=== PATIENT | female | born 1970 | race Caucasian/White ===

== ENCOUNTER → 2017-09-03 15:28 | Outpatient (CLI) | payer BC, OTHER, SELFPAY ==
[2017-09-03 18:07] LABS: Anion Gap 5 (5-15); BUN 14 mg/dL (7-18); BUN/Creat Ratio 14.7 RATIO (10-20); Calcium,Total 8.8 mg/dL (8.5-10.1); Chloride 108 mmol/L (98-107); Cholesterol 234 mg/dL (200); Creatinine, Serum 0.95 mg/dL (0.55-1.02); EST Glomerular Filtration Rate 67 mL/min (>60); Est Glom Filt Rate - Afr Amer 81 mL/min (>60); Glucose 68 mg/dL (74-106); High Density Lipoprotein 90 mg/dL; Potassium 3.9 mmol/L (3.5-5.1); Sodium Level 139 mmol/L (136-145); Thyroid Stim Hormone (TSH) 1.49 uIU/mL (0.358-3.74); Triglycerides 58 mg/dL; Very Low Density Lipoprotein 12 mg/dL (5-40)
[2017-09-05 08:35] LABS: Vitamin D,25 Hydroxy 32.8 ng/mL (29.95-100.01)
== END ==
PROVIDERS: Family Provider Family Medicine; PCP Family Medicine; Visit Provider Family Medicine
DX: Z00.00 Encounter for general adult medical examination without abnormal findings (principal)
CPT/HCPCS: 36415; 80048; 80061; 82306; 84443

== ENCOUNTER → 2017-10-31 14:08 | Outpatient (CLI) | payer BC, OTHER, SELFPAY ==
--- NOTE | 2017-10-31 14:14 | RAD_ITS ---
STUDY: X-RAY - LEFT WRIST REASON FOR EXAM: Female, 47 years old. Recent fall, try to cut herself TECHNIQUE: 3 view(s) of the wrist were obtained. COMPARISON: None. FINDINGS: Acute transverse fracture of the distal radial epiphysis with intra-articular extension. There is a 0.18 cm step-off at the articular cortex. Mild adjacent soft tissue swelling. Normal radiocarpal articulation. Normal distal radioulnar articulation. Normal carpal bones. Normal carpal articulations. Normal carpometacarpal articulation of the thumb. Normal second through fifth carpometacarpal articulations. Normal visualized metacarpal bones. RAD/Wrist min 3 Views IMPRESSION: Acute distal radial diaphyseal fracture with intra-articular extension and cortical step-off at the articular surface. Mild adjacent soft tissue swelling. Electronically Signed: Tosha Thomas MD at 8:02 EDT , Service support ,
== END ==
PROVIDERS: Family Provider Family Medicine; PCP Family Medicine; Referring Provider Nurse Practitioner Family; Visit Provider Nurse Practitioner Family
DX: M25.539 Pain in unspecified wrist (principal)
CPT/HCPCS: 73110

== ENCOUNTER → 2017-11-14 16:43 | Outpatient (CLI) | payer BC, OTHER, SELFPAY ==
--- NOTE | 2017-11-14 16:44 | CT_ITS ---
Exam: CT of the left wrist. HISTORY: Follow-up fracture seen on radiographs. COMPARISON: Radiographs 10/31/2017 FINDINGS: As on the radiographs, nondisplaced fracture seen of the dorsal distal radial metaphysis, extending into the articular surface. No impaction. No angulation. Normal appearance of the distal ulna. Normal visualized carpals and metacarpals. CT/Extremity Upper without Contra IMPRESSION: This exam confirms the nondisplaced intra-articular distal fracture seen on radiographs. No evidence for interval healing. Electronically Signed: Ortega Cross MD at 17:23 EDT , Service support ,
--- NOTE | 2017-11-14 17:00 | CT_ITS ---
Exam: CT of the left wrist. HISTORY: Follow-up fracture seen on radiographs. COMPARISON: Radiographs 10/31/2017 FINDINGS: As on the radiographs, nondisplaced fracture seen of the dorsal distal radial metaphysis, extending into the articular surface. No impaction. No angulation. Normal appearance of the distal ulna. Normal visualized carpals and metacarpals. CT/Coronals Sag Multi Obl 3-D Rec IMPRESSION: This exam confirms the nondisplaced intra-articular distal fracture seen on radiographs. No evidence for interval healing. Electronically Signed: Ortega Cross MD at 17:23 EDT , Service support ,
== END ==
PROVIDERS: Family Provider Family Medicine; PCP Family Medicine; Referring Provider Orthopaedic Surgery; Visit Provider Orthopaedic Surgery
DX: S52.515A Nondisplaced fracture of left radial styloid process, initial encounter for closed fracture (principal)
CPT/HCPCS: 73200; 76377

== ENCOUNTER → 2017-12-20 10:29 | Outpatient (CLI) | payer BC, OTHER, SELFPAY ==
--- NOTE | 2017-12-20 10:31 | RAD_ITS ---
STUDY: X-RAY - LEFT WRIST REASON FOR EXAM: Fracture follow-up. TECHNIQUE: 3 view(s) of the wrist were obtained. COMPARISON: Radiographs 10/31/2017. FINDINGS: There is a nondisplaced fracture of the distal radius with the fracture line less distinct indicating healing. Normal radiocarpal articulation. Normal distal radioulnar articulation. Normal carpal bones. Normal carpal articulations. Normal carpometacarpal articulation of the thumb. Normal second through fifth carpometacarpal articulations. Normal visualized metacarpal bones. The soft tissue structures are unremarkable. RAD/Wrist min 3 Views IMPRESSION: Healing nondisplaced fracture of the distal radius. Electronically Signed: Marvin Lechuga MD at 14:25 EST Tel , Service support ,
== END ==
PROVIDERS: Family Provider Family Medicine; PCP Family Medicine; Visit Provider Orthopaedic Surgery
DX: S52.92XA Unspecified fracture of left forearm, initial encounter for closed fracture (principal)
CPT/HCPCS: 73110

== ENCOUNTER 2018-01-30 10:30 | Outpatient (RCR) | payer BC, OTHER, SELFPAY ==
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
--- NOTE | 2018-01-30 10:51 | OTREVAL_ITS ---
Renuka Jay, DO, It has been my pleasure to treat KEN LANE over the last 12 visits for R distal radius fracture. Please see the progress note below for an update on the occupational therapy plan of care! Subjective: Arrived and noted things are going. Feels like ' I'm getting stronger' but still noted weakness. Objective/Function: Completed OT- re-evaluation on this date of 01/16/18. Results are as follows: Wrist: - flexion R 0-97, L 0-55. - extension R 0-69, L 0-54. - supination R 0-74, L 0-75. Thumb. MP flexion R WFL, L 0-51. IP R WNL, L -15-0-56. Thumb opposition R 0-31, L 0-20. radial abduction R 0-60, L 0-47. Strength: Supervisor [employer]: R 86, L 35. Lateral; R 19, L 9. Three Jaw R 18, L 8 - pain increased to 6/10, sharp and shooting. Pincer: R 13, L 5. 9 hole pegboard test: R 17.31 s. L 17.90 s. Ken has progressed since inital evaluation. Would benefit from continue OT to address strengthening and general conditioning to return to FT work for 2x weekly 3x weeks. Plan Frequency: 2x /Week Duration: 3 Weeks Visits in this POC: 8 Plan: continue POC. Will complete total 14 session to address B UE strength and endurance of UE with focus on hand and wrist needed to return to work without restrictions. Goals - Goals Goal:: Ken to increased L unemployment claims adjudicator to 60-70% of R non affected hand unemployment claims adjudicator strength to promote increased ROM and strength needed for ADL/IAdls including work related tasks by d/c. Goal:: Ken to increased ROM to similar results of R nonaffected hand to promote increased ROM and strength needed to complete ADL/IALDs by d/c. Goal:: Ken to complete pain management techniques to promote no more than 1/10 painw ith repetitive hand and thumb movement 4/5 trials 80% of the time to promote returning to PLOF for ADL/IALDs by d/c. Goal:: Ken to increase L hand dexterity and FMC through decrease time for completion on 9 hole pegboard test by d/c. Goal:: Ken to complete joint protection and correct wrist and thumb machanics to decrease risk of further injury 4/5 trials 80% of the time by /d.c Goal:: Ken to increasedreturn to all ADL/IADls without compensation 4/5 trials 80% of the time to promote increased ROM, strength, and general function of L hand by d/c. Anticipated Interventions Anticipated Interventions: A/AAROM/PROM, Strengthening, Massage, Desensitization, Modalities, Orthoses, Joint Protection/Energy Conservation, Ergonomic Education, Dynamic Sitting Balance, Fine Motor Coord/Nehemiah, ADL Training, Caregiver Training, Home Program Please do not hesitate to contact me at [phone] by phone or if you have questions or concerns regarding this new plan of care! Sincerely, Starla Oconnell
--- NOTE | 2018-01-30 12:09 | HP.OTDCSUM ---
HP - OT D/C Summary It has been my pleasure to treat KEN LANE under orders from Renuka Jay DO, for the diagnosis of R distal radius fracture for a total of 13 visit(s). Please see the following information for a summary of their discharge status. - Overall Improvement % Improvement: 80 - Objective Objective/Function: Completed new measurements today post gym based exercises. Results are as follows: ROM: Wrist. -flexion R 0-90, L 0-65. -extension R 0-60, L 0-56. -radial deviation R 0-15, L 0-14. -ulnar deviation R 0-31, L 0-24. -supination R 0-81, L 0-86. Strength: - sample shoe inspector and reworker in flexed position: R 89, L 63. - sample shoe inspector and reworker in extended position: R 96, L 84. - lateral R 20, L 12. - tripod R 17, L 12. - pincer R 14, L 7. 9 hole pegboard testL R 15.58 s, L 18.75 s. Denies numbness or tingling. Ken has progressed and meant most goals. She is able to complete 3x lifts with 50 lbs. - Goals Patient Goals: Regain Mobility, Regain Strength, Decrease Pain, Return to Work, Decrease Swelling/Stiffness, Improve Fine Motor Skills, Use Hand/Wrist/Arm Normally Again, Increase ROM, Be More Independent in ADLS, Resume Former Household Responsibilities (Cooking,Cleaning,Yard, etc.), Resume Hobbies Goal:: Ken to increased L sample shoe inspector and reworker to 60-70% of R non affected hand sample shoe inspector and reworker strength to promote increased ROM and strength needed for ADL/IAdls including work related tasks by d/c. Goal:: Ken to increased ROM to similar results of R nonaffected hand to promote increased ROM and strength needed to complete ADL/IALDs by d/c. Goal:: Ken to complete pain management techniques to promote no more than 1/10 painw ith repetitive hand and thumb movement 4/5 trials 80% of the time to promote returning to PLOF for ADL/IALDs by d/c. Goal:: Ken to increase L hand dexterity and FMC through decrease time for completion on 9 hole pegboard test by d/c. Goal:: Ken to complete joint protection and correct wrist and thumb machanics to decrease risk of further injury 4/5 trials 80% of the time by /d.c Goal:: Ken to increased return to all ADL/IADls without compensation 4/5 trials 80% of the time to promote increased ROM, strength, and general function of L hand by d/c. - Plan Plan: Pt. would like to hold d/c until after seeing doctor tomorrow. After doctor appointment as long as she is cleared for work she will be d/c'd. 01/27/18. Called and discussed with pt. results of doctor appointment. She noted she will be returning Feb.13. She is to continue HEP and gym-based exercises in the meantime. She is to call with questions/concerns. Handouts have been provided over the course of therapy for all topics discussed and HEP she is to be completing to promote strength and stability of affected wrist and hand. She has been complaint with completing exercises. - D/C Information If there are questions or concerns regarding this patient's occupational therapy, please fell free to call me at [phone]. Thank you for the referral of this patient. Sincerely, Starla Oconnell
== END 2018-01-30 19:00 | disposition home or self-care (01) ==
LOC: OT 10:30
PROVIDERS: Family Provider Family Medicine; PCP Family Medicine; Referring Provider Orthopaedic Surgery; Visit Provider Orthopaedic Surgery
DX: S52.502D Unspecified fracture of the lower end of left radius, subsequent encounter for closed fracture with routine healing (principal); X58.XXXD Exposure to other specified factors, subsequent encounter
CPT/HCPCS: 97110; 97140; 97166; 97168

== ENCOUNTER → 2018-10-29 14:54 | Outpatient (CLI) | payer BC, SELFPAY ==
[2018-10-29 14:46] VITALS: BMI 26.9
--- NOTE | 2018-10-29 14:56 | RAD_ITS ---
STUDY: X-RAY - LEFT HAND REASON FOR EXAM: Bump in the palm of the hand near the third and fourth metacarpals. TECHNIQUE: 3 view(s) of the hand. COMPARISON: Radiographs of the left wrist 12/20/2017. FINDINGS: Normal radiocarpal articulation. Normal distal radioulnar joint. There is healed fracture deformity of the distal radius. Normal visualized carpal bones. Normal carpal articulations Normal carpometacarpal articulation of the thumb. Normal second through fifth carpometacarpal joints. Normal metacarpi. Normal metacarpophalangeal joint of the thumb. Normal interphalangeal joint of the thumb. Normal proximal and distal phalanges of the thumb. Normal metacarpophalangeal joints of the second through fifth fingers. Normal proximal and distal interphalangeal joints of the second through fifth fingers. Normal phalanges of the second through fifth fingers. The soft tissue structures are unremarkable. RAD/Hand Min 3 Views IMPRESSION: Healed fracture deformity of the distal radius. Otherwise, unremarkable x-ray examination of the left hand. Electronically Signed: Marvin Lechuga MD at 15:57 EDT Tel , Service support ,
== END ==
PROVIDERS: Family Provider Family Medicine; PCP Family Medicine; Referring Provider Orthopaedic Surgery; Visit Provider Orthopaedic Surgery
DX: M79.642 Pain in left hand (principal)
CPT/HCPCS: 73130

== ENCOUNTER → 2019-01-20 16:26 | Outpatient (CLI) | payer BC, SELFPAY ==
[2019-01-02 14:04] VITALS: BMI 26.9
[2019-01-20 17:49] LABS: Absolute Lymphocyte Count 1.23 X10^3/uL (0.83-4.51); Absolute Neutrophil Count 5.5 X10^3/uL (2.0-7.7); Basophil# 0.03 X10^3/uL; Basophil% 0.4 % (0-1); Eosinophil# 0.17 X10^3/uL; Eosinophils% 2.2 % (0-5); Hematocrit 39.1 % (37-47); Hemoglobin 12.8 g/dL (12.0-15.0); Lymphocyte # 1.23 X10^3/ul (4.0); Lymphocyte % 15.7 % (19-41); Mean Corp Hgb Conc 32.7 g/dL (32-36); Mean Corpuscular Hgb 30.9 pg (27.0-32.0); Mean Corpuscular Volume 94.4 fL (81-99); Mean Platelet Vol. 10.8 fl (6.2-12.0); Monocyte# 0.88 X10^3/uL; Monocyte% 11.2 % (0-10); NRBC Flagged by Analyzer 0 % (0-5); Neutrophil # 5.49 X10^3/uL (2.7-7.7); Neutrophil % 70.1 % (47-70); Platelet Count 184 K/mm3 (150-450); RBC Distribution Width CV 12.6 % (11.6-14.6); RBC Distribution Width SD 43.9 fl (35.1-43.9); Red Blood Count 4.14 M/mm3 (4.2-5.4); White Blood Count 7.8 K/mm3 (4.4-11.0)
== END ==
PROVIDERS: Family Provider Family Medicine; PCP Family Medicine; Visit Provider Family Medicine
DX: C85.90 Non-Hodgkin lymphoma, unspecified, unspecified site (principal)
CPT/HCPCS: 36415; 85025

== ENCOUNTER 2020-04-21 15:00 | Outpatient (RCR) | payer BC, SELFPAY ==
[2019-01-02 14:04] VITALS: BMI 26.9
--- NOTE | 2020-04-01 07:40 | HP.OTEVAL_ITS ---
Patient's Visit Information KEN LANE is a 49 year old F, referred to Occupational Therapy by Dr. Edenilson Abbott MD, with a diagnosis of left thumb weakness. Date of Evaluation: 03/31/20 Occupational Therapist: Juanis Houser, ALEJANDRAR/Goyo, CHT - Subjective this 49 year old female was seen for OT eval with dx of left hand weakness. pt states. she broke her left wrist Oct 2018. pt states she feels she made a good recovery but has noticed difficulty picking up objects that require a pinch and difficulty with getting a senior commissary agent on things like pulling her shirt sleeve up. pt would like to know what she can do to increase her strength or figure out why her hand is weak. pt denies injury, numbness or tingling. - ADLs Dressing: Button shirt, Pants, Socks Fasteners: Tie shoes, Buttons, Zippers, Snaps - Objective Concerns: pt demo with sings of nerve involvement and would benefit from nerve conduction testing and ortho as strength will not return until nerve impingement resolved - ROM Opposition: right 10 left 6 ROM Comments: pt demo with limited left LF and RF adduction - Strength Seismograph Helper: right 80# left 20# with wrist extension compensation for senior commissary agent Lateral Pinch: right 18# left 4# Tripod Pinch: right 16# left unable Strength Comments: pt demo with weakness in ulnar nerve - Quick DASH-Disab of Arm,Shoulder& Hand Quick DASH Score: 25.0000 - Goals Goal:: pt will demo a increase in left senior commissary agent to 65# or greater to increase pts ind. with ADls and IADLs by d/c. pt will demo a increase in left pinch strength by 4# or greater to increase pts ind. with ADLs and IADls by d/c Goal:: pt will demo the ability to adduct LF to RF to prevent injury to LF by d/c Goal:: pt will demo understanding of performing nerve glides by end of 1st session. Goal:: pt will demo understanding of using compensitory mendy. to increase safety and performance of ADls by d/c - Rehabilitation General Assessment: pt demom with + Froment's sign with associated wasting of the 1st dorsal interosseous muscle. senior commissary agent and pinch strength impaired increasing difficulty with ADLs and IADLs. pts would benefit from nerve conduction and ortho consultation due to severity of muscle atrophy. Therapy will provide ulnar nerve glides and ed. pt on ulnar nerve compression. pt demo understanding and agree to POC. Rehabilitation Potential: Questionable - Anticipated Interventions A/AAROM/PROM, Strengthening, Orthoses, Joint Protection/Energy Conservation, Ergonomic Education, Fine Motor Coord/Nehemiah, Home Program Other Interventions: ulnar nerve glides. use of orthosis to stabilize thumb as needed - Visit Plan Frequency: 1-2x /Week Duration: 6 Weeks TEXT: Thank you for the opportunity to evaluate your patient. For Medicare and Medicare HMO plans, please review the plan of care and approve it. It will need to be FAXED BACK to us at [phone] for Medicare purposes. Please let me know if there are questions or concerns regarding this plan of care. Physician Signature: Date:
--- NOTE | 2020-07-21 11:50 | HP.OT.NRP ---
KEN LANE was seen in my office for initial evaluation on 03/31/20. The following Plan of Care was established for this patient: Initial Frequency: 1-2x /Week Initial Duration: 6 Weeks Anticipated Interventions: A/AAROM/PROM, Strengthening, Orthoses, Joint Protection/Energy Conservation, Ergonomic Education, Fine Motor Coord/Nehemiah, Home Program Other Interventions: ulnar nerve glides. use of orthosis to stabilize thumb as needed This patient was last seen in our office 04/21/20. Pertinent comments regarding their Occupational therapy will appear below: pt was seen for 2 OT visits. Pt did not make new gains in function during this time. due to time lapse in therapy services pt d/c. At this point I will be discontinuing this patient from occupational therapy. I would be happy to see this patient again in the future if found appropriate by the physician. Thank you! Juanis Houser, OTR/L, CHT
== END 2020-04-21 19:00 | disposition home or self-care (01) ==
LOC: OT 15:00
PROVIDERS: PCP Family Medicine; Referring Provider Family Medicine; Visit Provider Family Medicine
DX: R29.898 Other symptoms and signs involving the musculoskeletal system (principal)
CPT/HCPCS: 97110; 97166; 97530

== ENCOUNTER → 2020-05-10 13:19 | Outpatient (CLI) | payer BC, SELFPAY ==
[2019-01-02 14:04] VITALS: BMI 26.9
--- NOTE | 2020-05-10 13:19 | MRI_ITS ---
STUDY: MRI CERVICAL SPINE WITHOUT CONTRAST REASON FOR EXAM: Female, 49 years old. left arm weakness, mucsle artrophy. TECHNIQUE: Standardized fat and water weighted pulse sequences were obtained in the sagittal and axial planes. COMPARISON: 04/09/2015 FINDINGS: Normal foramen magnum and brainstem-cervical cord junction. Normal craniovertebral junction. Normal anterior atlantoaxial articulation. Normal odontoid process. Decreased cervical lordosis. Normal vertebral bodies and posterior osseous elements. C2-3: Normal endplates. Normal disc height, signal and morphology. Normal central canal and intervertebral neural foramina. C3-4: Normal endplates. Normal disc height, signal and morphology. Normal central canal and intervertebral neural foramina. C4-5: Normal endplates. Normal disc height, signal and minor bulging of the disc. Normal central canal and intervertebral neural foramina. C5-6: Narrowed disc space and endplate spurring. Mild narrowing the central canal and impingement upon the cord. Severe bilateral neuroforaminal stenosis due to bony hypertrophy.. C6-7: Mildly narrowed disc space and endplate spurring. Normal central canal. Moderate to severe bilateral neuroforaminal stenosis secondary to bony hypertrophy.. C7-T1: Normal endplates. Normal disc height, signal and morphology. Normal central canal and intervertebral neural foramina. Normal cervical cord. Normal visualized soft tissue structures. Findings are similar to that seen on prior exam. MRI/Spine Cervical (Routine) IMPRESSION: No evidence for acute fracture or other significant bony pathology.. Spondylosis most severe at C5-6 and C6-7 in association with spinal stenosis secondary to bony hypertrophy.. Electronically Signed: Sunil Araujo MD at 17:19 EDT , Service support ,
--- NOTE | 2020-05-10 13:19 | MRI_ITS ---
STUDY: MRI THORACIC SPINE WITHOUT CONTRAST REASON FOR EXAM: Female, 49 years old. arm weakness, mucsle atrophy TECHNIQUE: Standardized fat and water weighted pulse sequences were obtained in the sagittal and axial planes. COMPARISON: None. FINDINGS: Normal kyphosis of the thoracic spine. There is no substantial scoliosis. No evidence for acute fracture or other significant bony pathology.. There is mild multilevel disc space narrowing and endplate spurring as well as disc degeneration without significant disc protrusion spinal stenosis or cord compression. Normal visualized thoracic cord. Normal conus medullaris that terminates at T12-L1 The soft tissue structures are unremarkable. MRI/Spine Thoracic (Routine) IMPRESSION: Mild spondylosis. No acute fracture. No definitive evidence for metastatic disease although limited repeat study with contrast would be useful for further evaluation if clinically warranted Electronically Signed: Sunil Araujo MD at 17:16 EDT , Service support ,
--- NOTE | 2020-05-10 13:19 | MRI_ITS ---
STUDY: MRI BRAIN WITH AND WITHOUT CONTRAST REASON FOR EXAM: Female, 49 years old. left upper extremity weakness, concern for METS -- hx non Hodgkins Lymphoma TECHNIQUE: Standardized multiplanar fat and water weighted pulse sequences were obtained. 15ml IV Dotarem was administered for the contrast portion of the examination. COMPARISON: None. FINDINGS: Normal size of the ventricles and extra-axial spaces for the patient''s age. Normal white matter tracts of the supratentorial brain. Normal bilateral basal ganglia. Normal thalami. There is no extra-axial fluid accumulation. Normal flow voids within the major intracranial circulation suggesting patency by spin echo criteria. Normal venous enhancement. There is a small homogeneously enhancing nodule in the right parietal lobe raising 4.5 x 7.3 mm without mass effect or restricted diffusion which may be consistent with metastasis. Meningioma not excluded but less likely in the absence of dural enhancement. However clinical correlation recommended Normal sella turcica, pituitary gland, infundibular stalk, optic chiasm and hypothalamus. Normal tectal plate and pineal gland. Normal midbrain, leslee and medulla. Normal cerebellum. Normal basal cisterns. Normal bilateral temporal bones. Normal bilateral internal auditory canals. No demonstrated orbital abnormality, within the constraints of a routine brain study. Normal visualized paranasal sinuses. Normal calvarium and skull base. Normal visualized soft tissue structures. Normal visualized upper cervical spine. MRI/Brain W/WO Contrast IMPRESSION: Small homogeneously enhancing nodule in the right parietal lobe possibly representing metastatic lesion. Meningioma not entirely excluded although less likely. Clinical correlation is recommended Electronically Signed: Sunil Araujo MD at 17:09 EDT , Service support ,
== END ==
PROVIDERS: PCP Family Medicine; Referring Provider Orthopaedic Surgery; Visit Provider Orthopaedic Surgery
DX: R29.898 Other symptoms and signs involving the musculoskeletal system (principal); M62.542 Muscle wasting and atrophy, not elsewhere classified, left hand; M62.58 Muscle wasting and atrophy, not elsewhere classified, other site; Z85.72 Personal history of non-Hodgkin lymphomas; R29.2 Abnormal reflex; M50.30 Other cervical disc degeneration, unspecified cervical region
CPT/HCPCS: 70553; 72141; 72146; A9575

== ENCOUNTER 2020-10-08 11:36 | Outpatient (RCR) | payer BC, SELFPAY | END 2020-11-12 23:59 | LOC: IMMUN 11:36 | PROVIDERS: PCP Family Medicine; Referring Provider Family Medicine; Visit Provider Family Medicine | DX: Z23 Encounter for immunization (principal) ==

== ENCOUNTER → 2020-12-01 15:28 | Outpatient (CLI) | payer BC, SELFPAY ==
[2020-12-01 17:38] LABS: Basophil# 0.03 X10^3/uL; Basophil% 0.6 % (0-1); Eosinophil# 0.12 X10^3/uL; Eosinophils% 2.4 % (0-5); Hematocrit 41.6 % (37-47); Hemoglobin 13.2 g/dL (12.0-15.0); Lymphocyte % 28.1 % (19-41); Mean Corp Hgb Conc 31.7 g/dL (32-36); Mean Corpuscular Volume 94.5 fL (81-99); Mean Platelet Vol. 10.9 fl (6.2-12.0); NRBC Flagged by Analyzer 0 % (0-5); Neutrophil # 3.02 X10^3/uL (2.7-7.7); Neutrophil % 60.7 % (47-70); Platelet Count 195 K/mm3 (150-450); RBC Distribution Width CV 12.9 % (11.6-14.6); RBC Distribution Width SD 44.6 fl (35.1-43.9)
[2020-12-01 17:56] LABS: Vitamin D,25 Hydroxy 40.7 ng/mL
[2020-12-01 18:02] LABS: AST(SGOT) 24 U/L (15-37); Alanine Aminotransfer ALT/SGPT 32 U/L (13-56); Albumin, Serum 3.8 g/dL (3.2-5.0); Alkaline Phosphatase 75 U/L (45-117); Anion Gap 6 (5-15); BUN 19 mg/dL (7-18); BUN/Creat Ratio 21.5 RATIO (10-20); Chloride 103 mmol/L (98-107); Creatinine, Serum 0.88 mg/dL (0.55-1.02); EST Glomerular Filtration Rate 72 mL/min (>60); Est Glom Filt Rate - Afr Amer 87 mL/min (>60); Globulin 3.9 g/dL (2.2-4.2); Glucose 73 mg/dL (74-106); Protein, Total 7.7 g/dL (6.4-8.2); Sodium Level 138 mmol/L (136-145); Thyroid Stim Hormone (TSH) 1.89 uIU/mL (0.358-3.74)
== END ==
PROVIDERS: PCP Family Medicine; Referring Provider Family Medicine; Visit Provider Family Medicine
DX: E55.9 Vitamin D deficiency, unspecified (principal); C85.90 Non-Hodgkin lymphoma, unspecified, unspecified site; F41.9 Anxiety disorder, unspecified
CPT/HCPCS: 36415; 80053; 82306; 84443; 85025

== ENCOUNTER 2021-03-16 16:04 | Outpatient (CLI) | payer BC, SELFPAY ==
[2021-03-16 18:15] LABS: Erythrocyte Sedimentation Rate 9 mm/hr (0-30)
[2021-03-16 18:30] LABS: Vitamin B12 1134 pg/mL (211-911)
[2021-03-16 19:14] LABS: CRP < 2.90 mg/L (0.0-3.0)
[2021-03-19 15:07] LABS: Vitamin D 1,25-Dihydroxy 42.4 pg/mL (19.9-79.3)
[2021-03-19 17:19] LABS: ANTINUCLEAR ANTIBODIES DIRECT Negative (Negative)
[2021-03-22 08:19] LABS: Arsenic 7245 < 1 ug/L (2-23); Lead, Blood < 1 ug/dL (0-4); Mercury, Blood 85324 < 1.0 ug/L (0.0-14.9)
[2021-03-30 11:09] LABS: Vitamin B1, Thiamine 253.4 nmol/L (66.5-200.0)
[2021-03-31 16:58] LABS: Zinc, Plasma or Serum 87 ug/dL (44-115)
== END 2021-03-16 23:59 | disposition short-term general hospital (02) ==
PROVIDERS: PCP Family Medicine; Referring Provider Family Medicine; Visit Provider Psychiatry & Neurology Neurology
DX: G12.20 Motor neuron disease, unspecified (principal)
CPT/HCPCS: 36415; 82175; 82607; 82652; 82746; 83655; 83825; 84425; 84630; 85652; 86038; 86140; 86225; 86235

== ENCOUNTER 2021-03-21 14:30 | Outpatient (RCR) | payer BC, SELFPAY ==
--- NOTE | 2021-03-22 09:14 | HP.OTEVAL_ITS ---
Patient's Visit Information KEN LANE is a 50 year old F, referred to Occupational Therapy by Dr. Alex Abdalla MD, with a diagnosis of Motor neuron disease unspecified Dupuytren's contracture left RF. Date of Evaluation: 03/21/21 Occupational Therapist: Juanis Houser, FRANCY/Goyo, CHT - Subjective This 50 year old female was seen for OT eval with dx of motor neuron disease, and palmar fascial fibromatosis (Dupuytren's)- pt was seen by this therapist just about a year ago- pt continues to struggle with weakness of left hand- (many are trying to figure out what is causing it-) ortho feels it is a nuro issue not at problem with compression of nerves- pt states she is functional but having difficulty with opening items that require bilateral hands- pt presents with median and ulnar motor nerve atrophy- and would like to know what she can do to assist in keeping her function and limit contractures - ROM ROM Comments: 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 pt PROM is WNL - Strength Dancing Instructor: right 80# left 20# Lateral Pinch: right 12# left unable Tripod Pinch: right 10# left unable Strength Comments: integration technician strength on left did not change from eval about a year ago-. however lateral pinch decreased to unable from 4# of pinch - Sensation Sensation Comments: pt states at times she get tingling down her forearm - Quick DASH-Disab of Arm,Shoulder& Hand Quick DASH Score: 31.6650 - Goals Goal:: pt will demo understanding of using tenositis approach for grasping objects of medium and small size by d/c Goal:: pt will demo understanding of using adaptive equipment to increase ind. with shoe tie (such as elastic lace) by d.c Goal:: pt will demo understanding of using adaptive eq. for FMS as rocker knife, voice to text, and ad. container fish skinning machine feeder by anitac Goal:: pt will demo IND doffing/donning of custom orthosis to increase pts ind with grasp by dc - Rehabilitation General Assessment: pt demo with positive wasting of ulnar and median nerve innervated muscle groups of her hand- this limits pts ability to hold or use left hand for ADls and IADLs. Pt has positive Dupuytren's contracture of left RF- with PROM pt gains full ext ( the limited ability to extend fingers are probably more due to ulnar motor nerve disease) pt would benefit from skilled OT services 4 visits to ensure pt has understanding of Ad. eq. and use of custom orthosis to prevent contracture deformities. pt demo understanding and agree to POC, Rehabilitation Potential: Good - Anticipated Interventions A/AAROM/PROM, Strengthening, Orthoses, Joint Protection/Energy Conservation, Ergonomic Education, Fine Motor Coord/Nehemiah, Education re assistive Equipment, Education re Diagnosis, Home Program - Visit Plan Frequency: Every Other Week Duration: 6 Weeks TEXT: Thank you for the opportunity to evaluate your patient. For Medicare and Medicare HMO plans, please review the plan of care and approve it. It will need to be FAXED BACK to us at [phone] for Medicare purposes. Please let me know if there are questions or concerns regarding this plan of care. Physician Signature: Date:
--- NOTE | 2021-04-04 08:26 | HP.OT.NRP ---
KEN WYATT was seen in my office for initial evaluation on 03/21/21. The following Plan of Care was established for this patient: Initial Frequency: Every Other Week Initial Duration: 6 Weeks Anticipated Interventions: A/AAROM/PROM, Strengthening, Orthoses, Joint Protection/Energy Conservation, Ergonomic Education, Fine Motor Coord/Nehemiah, Education re assistive Equipment, Education re Diagnosis, Home Program This patient was last seen in our office 03/21/21. Pertinent comments regarding their Occupational therapy will appear below: pt was seen for initial OT eval - cancelled her follow up as she had no change in her movement. Pt request d/c. At this point I will be discontinuing this patient from occupational therapy. I would be happy to see this patient again in the future if found appropriate by the physician. Thank you! Juansi Houser, OTR/L, CHT
== END 2021-03-21 19:00 | disposition home or self-care (01) ==
LOC: OT 14:30
PROVIDERS: PCP Family Medicine; Referring Provider Psychiatry & Neurology Neurology; Visit Provider Psychiatry & Neurology Neurology
DX: G12.20 Motor neuron disease, unspecified (principal); M72.0 Palmar fascial fibromatosis [Dupuytren]
CPT/HCPCS: 97166

== ENCOUNTER 2021-04-12 17:51 | Outpatient (CLI) | payer BC, SELFPAY ==
--- NOTE | 2021-04-12 17:53 | MRI_ITS ---
STUDY: MRI CERVICAL SPINE WITHOUT CONTRAST REASON FOR EXAM: Female, 50 years old. Left hand weakness; motor neuron disease TECHNIQUE: Standardized fat and water weighted pulse sequences were obtained in the sagittal and axial planes. COMPARISON: MRI of the cervical spine dated May 10, 2020 FINDINGS: Normal foramen magnum and brainstem-cervical cord junction. Normal craniovertebral junction. Normal anterior atlantoaxial articulation. Normal odontoid process. There is reversal of the normal cervical lordosis. Disc desiccation is present at all levels. C2-3: Normal endplates. Desiccated disc. Normal disc height and morphology. Normal central canal and intervertebral neural foramina. C3-4: Normal endplates. Desiccated disc. Normal disc height and morphology. Normal central canal and intervertebral neural foramina. C4-5: Minimal disc space narrowing with a diffuse disc spur complex. Normal central canal and right neural foramen. Moderate left foraminal stenosis with nerve root compression due to uncovertebral and facet joint hypertrophy C5-6: Moderate disc space narrowing with a diffuse disc osteophyte complex resulting in mild compression on anterior aspect of the cord and most prominent asymmetric on the right compared to the left, and mild central canal stenosis. Moderate to severe left foraminal stenosis with nerve root compression due to uncovertebral and facet joint hypertrophy. Mild right foraminal stenosis without nerve root compression. C6-7: Mild to moderate disc space narrowing with a diffuse disc spur complex. Normal central canal and intervertebral neural foramina. C7-T1: Normal endplates. Normal disc height, signal and morphology. Normal central canal and intervertebral neural foramina. Normal cervical cord. There is no demonstrated cervical cord syrinx cavity. Normal visualized soft tissue structures. MRI/Spine Cervical (Routine) IMPRESSION: 1. Multilevel degenerative changes, as described above. 2. C5-C6 Moderate disc space narrowing with a diffuse disc osteophyte complex resulting in mild compression on anterior aspect of the cord and most prominent asymmetric on the right compared to the left, and mild central canal stenosis. 3. Moderate to severe C5-C6 left foraminal stenosis with nerve root compression due to uncovertebral and facet joint hypertrophy. Electronically Signed: Silvano Vo MD at 11:29 EST ,
== END 2021-04-12 23:59 | disposition home or self-care (01) ==
PROVIDERS: PCP Family Medicine; Visit Provider Psychiatry & Neurology Neurology
DX: G12.20 Motor neuron disease, unspecified (principal)
CPT/HCPCS: 72141

== ENCOUNTER → 2021-07-06 | Outpatient (CLI) | payer BC, SELFPAY | END | disposition home or self-care (01) | PROVIDERS: PCP Family Medicine; Referring Provider Family Medicine; Visit Provider Psychiatry & Neurology Neurology | DX: G61.82 Multifocal motor neuropathy (principal) | CPT/HCPCS: 36415 ==

== ENCOUNTER → 2022-03-10 | Outpatient (CLI) | payer BC, SELFPAY ==
--- NOTE | 2022-03-10 15:09 | BI_ITS ---
MAMMOGRAPHY - BILATERAL SCREENING REASON FOR EXAM: Female, 51 years old. Routine annual screening examination. PERTINENT HISTORY: Non-contributory. TECHNIQUE: Digital bilateral breast elan (3D mammographic acquisition) in the CC and MLO projections. 2-D mediolateral oblique (MLO) and craniocaudad (CC) views of both breasts were obtained. CAD: Full Field Digital Mammography with Computer Added Detection was performed. COMPARISON: Comparison is made with prior outside examination dated 12/29/2020. FINDINGS: Breast Composition: The breasts are heterogeneously dense, which may obscure small masses. There are no dominant masses or suspicious calcifications. No other significant abnormalities are identified. There has been no significant change since the prior study. BI/SCRN MAMM (CAD)W/ELAN BILAT IMPRESSION: Stable bilateral screening mammogram. Yearly follow-up mammogram recommended. (A) ASSESSMENT CATEGORY: BIRADS Category 1: Negative. A letter regarding these results will be sent to the patient by the facility within 30 days. Approximately 10% of breast cancers are not detected by mammography. A normal mammogram should not delay biopsy of a clinically suspicious abnormality. [id number] Electronically Signed: Alexandre Garcia MD at 9:02 EST ,
== END | disposition home or self-care (01) ==
LOC: OPBI 15:08
PROVIDERS: PCP Family Medicine; Referring Provider Family Medicine; Visit Provider Family Medicine
DX: Z12.31 Encounter for screening mammogram for malignant neoplasm of breast (principal)
CPT/HCPCS: 77063; 77067

== ENCOUNTER → 2022-06-29 | Outpatient (CLI) | payer BC, SELFPAY ==
[2022-06-29 18:47] LABS: ALB/GLOB Ratio 1.1 RATIO (0.9-2.4); AST(SGOT) 24 U/L (15-37); Alanine Aminotransfer ALT/SGPT 25 U/L (13-56); Albumin, Serum 3.8 g/dL (3.2-5.0); Alkaline Phosphatase 76 U/L (45-117); Anion Gap 7 (5-15); BUN 18 mg/dL (7-18); BUN/Creat Ratio 24.2 RATIO (10-20); Calcium,Total 9.2 mg/dL (8.5-10.1); Chloride 107 mmol/L (98-107); Creatinine, Serum 0.74 mg/dL (0.55-1.02); EST Glomerular Filtration Rate 87 mL/min (>60); Est Glom Filt Rate - Afr Amer 105 mL/min (>60); Globulin 3.5 g/dL (2.2-4.2); Glucose 71 mg/dL (74-106); Potassium 3.8 mmol/L (3.5-5.1); Protein, Total 7.3 g/dL (6.4-8.2); Sodium Level 140 mmol/L (136-145)
[2022-06-29 18:54] LABS: Vitamin D,25 Hydroxy 79.1 ng/mL
== END | disposition home or self-care (01) ==
LOC: MFPLAB 16:39
PROVIDERS: PCP Family Medicine; Visit Provider Family Medicine
DX: E55.9 Vitamin D deficiency, unspecified (principal)
CPT/HCPCS: 36415; 80053; 82306

== ENCOUNTER → 2023-05-21 | Outpatient (CLI) | payer BC, SELFPAY ==
--- NOTE | 2023-05-21 14:27 | BI_ITS ---
MAMMOGRAPHY - BILATERAL SCREENING REASON FOR EXAM: Female, 52 years old. Routine annual screening examination. PERTINENT HISTORY: Non-contributory. TECHNIQUE: Digital bilateral breast elan (3D mammographic acquisition) in the CC and MLO projections. 2-D mediolateral oblique (MLO) and craniocaudad (CC) views of both breasts were obtained. CAD: Full Field Digital Mammography with Computer Added Detection was performed. COMPARISON: Comparison is made with prior study dated March 10, 2022. FINDINGS: Breast Composition: The breasts are heterogeneously dense, which may obscure small masses. There are no dominant masses or suspicious calcifications. No other significant abnormalities are identified. There has been no significant change since the prior study. BI/SCRN MAMM (CAD)W/ELAN BILAT IMPRESSION: Stable bilateral screening mammogram. Yearly follow-up mammogram recommended. (A) ASSESSMENT CATEGORY: BIRADS Category 1: Negative. A letter regarding these results will be sent to the patient by the facility within 30 days. Approximately 10% of breast cancers are not detected by mammography. A normal mammogram should not delay biopsy of a clinically suspicious abnormality. [id number] Electronically Signed: Alexandre Garcia MD at 15:37 EDT ,
== END | disposition home or self-care (01) ==
LOC: OPBI 14:25
PROVIDERS: PCP Family Medicine; Referring Provider Family Medicine; Visit Provider Family Medicine
DX: Z12.31 Encounter for screening mammogram for malignant neoplasm of breast (principal)
CPT/HCPCS: 77063; 77067

== ENCOUNTER → 2024-01-04 | Outpatient (CLI) | payer BC, SELFPAY ==
[2024-01-04 17:31] LABS: Absolute Lymphocyte Count 1.36 X10^3/uL (0.83-4.51); Absolute Neutrophil Count 3.3 X10^3/uL (2.0-7.7); Basophil# 0.03 X10^3/uL; Basophil% 0.6 % (0-1); Eosinophil# 0.08 X10^3/uL; Eosinophils% 1.5 % (0-5); Hematocrit 39.2 % (37-47); Lymphocyte # 1.36 X10^3/ul (0.83-4.51); Lymphocyte % 26.2 % (19-41); Mean Corp Hgb Conc 33.2 g/dL (32-36); Mean Corpuscular Hgb 30.8 pg (27.0-32.0); Mean Corpuscular Volume 92.9 fL (81-99); Mean Platelet Vol. 10.7 fl (6.2-12.0); Monocyte# 0.43 X10^3/uL; Monocyte% 8.3 % (0-10); NRBC Flagged by Analyzer 0 % (0-5); Neutrophil # 3.29 X10^3/uL (2.7-7.7); Neutrophil % 63.2 % (47-70); Platelet Count 187 K/mm3 (150-450); RBC Distribution Width SD 44.1 fl (35.1-43.9); Red Blood Count 4.22 M/mm3 (4.2-5.4); White Blood Count 5.2 K/mm3 (4.4-11.0)
[2024-01-04 18:04] LABS: ALB/GLOB Ratio 1.2 RATIO (0.9-2.4); AST(SGOT) 16 U/L (15-37); Alanine Aminotransfer ALT/SGPT 22 U/L (13-56); Albumin, Serum 3.8 g/dL (3.2-5.0); Alkaline Phosphatase 69 U/L (45-117); Anion Gap 6 (5-15); BUN 13 mg/dL (7-18); BUN/Creat Ratio 15.6 RATIO (10-20); Chloride 107 mmol/L (98-107); Cholesterol 208 mg/dL (200); Creatinine, Serum 0.83 mg/dL (0.55-1.02); EST Glomerular Filtration Rate 76 mL/min (>60); Est Glom Filt Rate - Afr Amer 92 mL/min (>60); Globulin 3.1 g/dL (2.2-4.2); Glucose 84 mg/dL (74-106); High Density Lipoprotein 75 mg/dL; Potassium 3.7 mmol/L (3.5-5.1); Protein, Total 6.9 g/dL (6.4-8.2); Sodium Level 139 mmol/L (136-145); Triglycerides 70 mg/dL; Very Low Density Lipoprotein 14 mg/dL (5-40)
== END | disposition home or self-care (01) ==
LOC: MFPLAB 16:35
PROVIDERS: PCP Family Medicine; Referring Provider Family Medicine; Visit Provider Family Medicine
DX: Z01.419 Encounter for gynecological examination (general) (routine) without abnormal findings (principal)
CPT/HCPCS: 36415; 80053; 80061; 84443; 85025

== ENCOUNTER → 2024-06-23 | Outpatient (CLI) | payer BC, SELFPAY ==
--- NOTE | 2024-06-23 15:44 | BI_ITS ---
EXAM: SCRN MAMM (CAD)W/ELAN BILAT DATE: 06/23/2024 CLINICAL HISTORY: F, Age 53 y/o , SCREENING BREAST CANCER RISK ASSESSMENT: Has not been calculated. TECHNIQUE: Bilateral screening digital breast tomosynthesis with 2D and 3D images. Computer aided detection. COMPARISON: Prior exam(s) dated 05/21/2023 and 03/10/2022. FINDINGS: TISSUE DENSITY: The breast tissue is composed of scattered area of fibroglandular density. Bilateral Breast Mammographic Findings: Benign-appearing round microcalcifications are seen in both breasts. No suspicious masses, suspicious cluster of microcalcifications, architectural distortion or secondary signs of malignancy is identified in either breast. BI/SCRN MAMM (CAD)W/ELAN BILAT IMPRESSION: OVERALL FINAL ASSESSMENT: BIRADS 2 BENIGN FINDING RECOMMENDATION: Routine annual follow-up in 1 Year A letter with findings and recommendations will be mailed to the patient. Reading Location: [id number]
== END | disposition home or self-care (01) ==
LOC: OPBI 15:43
PROVIDERS: PCP Family Medicine; Referring Provider Family Medicine; Visit Provider Family Medicine
DX: Z12.31 Encounter for screening mammogram for malignant neoplasm of breast (principal)
CPT/HCPCS: 77063; 77067